=== PATIENT | male | born 1960 | race Caucasian/White ===

== ENCOUNTER 2024-08-06 13:52 | Outpatient (CLI) | payer BC, SELFPAY ==
--- NOTE | ~2024-08-06 | US_ITS ---
EXAMINATION: US arterial duplex LE RT DATE: 08/06/2024 14:36 INDICATION: Iliac artery dissection TECHNIQUE: Multiple grayscale and Doppler ultrasound images of the arteries of the right lower limb w ere obtained. COMPARISON: None FINDINGS: Normal grayscale appearance and normal triphasic waveforms with brisk systolic upstrokes at the visua lized portions of the right common femoral, profunda femoral, superficial femoral, popliteal, posteri or tibial and peroneal arteries. IMPRESSION: 1. Normal arterial duplex ultrasound of the arteries of the right lower limb as detailed above. Reviewed, dictated and finalized at location A.
--- OUTSIDE RECORDS SUMMARY | 2024-08-06 14:17 | XMS_ITS | Clinical Summary ---
Author Organization [facility] Care Team Providers Care Igniter Assembler Name Role Phone Unavailable Primary Care Provider Unavailabl e Social History Tobacco Use Types Packs/Day Years Used Date Smoking Tobacco: Never Assessed Sex and Gender Information Value Date Recorded Sex Assigned at Not on file Legal Sex Male 10:15 AM CDT Gender Identity Not on file Sexual Orientation Not on file Plan of Treatment Health Maintenance Due Date Last Done Comments Hepatitis C Virus (HCV) Screening 1960 TdaP Immunization 1960 Colonoscopy 2005 Colorectal Cancer Screening 2005 Cologuard 2010 Immunochemical Fecal Occult Blood 2010 Pneumococcal Immunization (5 0+ years) (1 of 1 - PCV) 2010 PSA Discussion 2015 Influenza Immunization (#1) 01/19/202409/2019, 02/25/2019 SARS-COV-2 Immunization ( season) 2024 09/05/2020, 08/15/2020 Respiratory Syncytial Virus (RSV) Immunization (Adult) (1 - 1-dose 75+ series) 2035 Zoster Immunization Completed 10/25/2017, 06/25/2017 Hepatitis B Immunization Aged Out No longer eligible based on patient's age to complete this topic Meningococcal Immunization (ACWY) Aged Out No longer eligible b ased on patient's age to complete this topic Pneumococcal Immunization Combined Aged Out No longer eligible b ased on patient's age to complete this topic Rotavirus Immunization Aged Out No lo nger eligible based on patient's age to complete this topic
--- OUTSIDE RECORDS SUMMARY | 2024-08-06 14:17 | XMS_ITS | Referral Summary ---
Author Organization [facility] Address [address] [place] [address] Care Team Providers Care Underground Roof Bolter Name Role Phone Modesto You MD Primary Care Provide r Allergies Active Allergy Reactions Criticality Noted Date Comments Penicillin Penicillins Medications simvastatin (ZOCOR) 10 mg tablet take 1 tablet by oral route every day in the evening 0 0 6 Active nortriptyline (PAMELOR) 10 mg capsule take 1 capsule by oral route every night at bedtime 30 2 6 Active ciprofloxacin (CIPRO) 500 mg tablet Take 1 tablet (500 mg total) by mouth 2 (two) times a day 20 tablet 2 Active ondansetron ODT (ZOFRAN-ODT) 8 mg disintegrating tablet Take 1 tablet (8 mg total) by mouth every 8 (eight) hours as needed for nausea or vomiting 20 tablet 2 Active Immunizations Immunization Administration Dates Next Due Influenza, Quadrivalent, Spl it, Preservative Free, Intramuscular 05/16/2017 Social History Tobacco Use Types Packs/Day Years Used Date Smoking Tobacco: Never Assessed Sex and Gender Information Value Date Recorded Sex Assigned at Not on file Legal Sex Male 4:01 AM STEPDOWN NURSE Gender Identity Not on file Sexual Orientation Not on file Last Filed Vital Signs Vital Sign Reading Time Taken Comments Blood Pressure 108/86 06/05/2021 11:00 AM STEPDOWN NURSE Pulse 82 06/05/2021 11:00 AM STEPDOWN NURSE Temperature 36.4 C (97.5 F) 06/05/2021 8:01 AM STEPDOWN NURSE Respiratory Rate 19 06/05/2021 7:59 AM STEPDOWN NURSE Oxygen Saturation 97% 06/05/2021 11:00 AM STEPDOWN NURSE Inhaled Oxygen Concentration - - Weight 75 kg (165 lb 5.5 oz) 06/05/2021 7:59 AM STEPDOWN NURSE Height 172.7 cm (5' 7.99 ) 06/05/2021 7:59 AM CS T Body Mass Index 25.15 06/05/2021 7:59 AM STEPDOWN NURSE Plan of Treatment Not on file Insurance [employer] [place] [employer] [place] Care Teams Underground Roof Bolter Relationship Specialty Start Date End Date Modesto You MD [address] [place] [address] PCP - General 07/03/16
--- OUTSIDE RECORDS SUMMARY | 2024-08-06 14:17 | XMS_ITS | Clinical Summary ---
Author Organization [facility] Address [address] [place] [address] Care Team Providers Care Bin Piler Name Role Phone Modesto You MD Primary [...] Quadrivalent, Spl it, Preservative Free, Intramuscular 05/16/2017 Surgical History Surgery Date Site/Laterality Comments ABSCESS TUBE EXCHANGE 06/14/2016 N/A ABSCESS TUBE EXCHANGE 06/05/2016 N/A IR CHOLANGIOGRAM THROUGH EXISTING CATHETER 05/07/2016 N/A ABSCESS TUBE EXCHANGE 04/27/2016 N/A GALLBLADDER DRAINAGE 04/23/2016 N/A CT GUIDED DRAINAGE PERITONEA L OR RETROPERITONEAL FLUID COLLECTION 04/10/2016 N/A Social History Tobacco Use Types Packs/Day Years Used Date Smoking Tobacco: Never Assessed Sex and Gender Information Value Date Recorded Sex Assigned at Not on file Legal Sex Male 4:01 AM ANATOMIC PATHOLOGY MANAGER Gender Identity Not on file Sexual Orientation Not on file Obstetrics History Last Filed Vital Signs Vital Sign Reading Time Taken Comments Blood Pressure 108/86 06/05/2021 11:00 AM ANATOMIC PATHOLOGY MANAGER Pulse 82 06/05/2021 11:00 AM ANATOMIC PATHOLOGY MANAGER Temperature 36.4 C (97.5 F) 06/05/2021 8:01 AM ANATOMIC PATHOLOGY MANAGER Respiratory Rate 19 06/05/2021 7:59 AM ANATOMIC PATHOLOGY MANAGER Oxygen Saturation 97% 06/05/2021 11:00 AM ANATOMIC PATHOLOGY MANAGER Inhaled Oxygen Concentration - - Weight 75 kg (165 lb 5.5 oz) 06/05/2021 7:59 AM ANATOMIC PATHOLOGY MANAGER Height 172.7 cm (5' 7.99 ) 06/05/2021 7:59 AM CS T Body Mass Index 25.15 06/05/2021 7:59 AM ANATOMIC PATHOLOGY MANAGER Plan of Treatment Not on file Insurance [employer] [place] [facility] [employer] [facility] Care Teams Bin Piler Relationship Specialty Start Date End Date Modesto You MD [address] [place] [id number] PCP - General 07/03/16
--- OUTSIDE RECORDS SUMMARY | 2024-08-06 14:17 | XMS_ITS | Clinical Summary ---
Author Organization [facility] Address [address] [place] [address] Care Team Providers Care Distribution Spec Name Role Phone Modesto You MD Primary Care Provider [phone] Source Comments [facility],non-owned Affiliates and Associated Physician Practices is amultiple site organization consisting of ambulatory clinics and hospital sitesin [place], [place], [place] and [place]. This disclosure is being madepursuant to the Care Everywhere program and may not contain all information available regarding this patient. Last updated 18.[facility] [employer] Social History Tobacco Use Types Packs/Day Years Used Date Smoking Tobacco: Never Assessed Sex and Gender Information Value Date Recorded Sex Assigned at Not on file Gender Identity Not on file Sexual Orientation Not on file Plan of Treatment Health Maintenance Due Date Last Done Comments COLOGUARD (AGES 45-75) - COL ON CA SCREENING 1960 COLON MONITORING 1960 COLONOSCOPY - COLON CA SCREENING 1960 CT COLONOGRAPHY - COLON CA SCREENING 1960 Colorectal Cancer Screening 1960 FIT - COLON CA SCREENING 1960 FLEX SIG - COLON CA SCREENING 1960 LIPID TESTING 1960 HIV SCREENING 1975 HEPATITIS C SCREENING 04/29/1978 DTAP/TDAP/TD VACCINES (1 - Tdap) 1979 PNEUMOCOCCAL VACCINE 50+ (1 of 1 - PCV) 2010 ZOSTER VACCINE (1 of 2) 2010 COVID-19 VACCINE ( - 2023-2 5 season) 2024 INFLUENZA VACCINE (#1) 2024 DEPRESSION SCREENING 05/20/2024 Respiratory Syncytial Virus (RSV) Vaccine Pt: or over 60 yrs (1 - 1-dose 75+ series) 2035 HEPATITIS B VACCINE Aged Out No longe r eligible based on patient's age to complete this topic HIB VACCINE Aged Out No longer eligi ble based on patient's age to complete this topic HPV VACCINE Aged Out No longer eligi ble based on patient's age to complete this topic MENINGOCOCCAL (Group B) VACC INE SHARED DECISION-MAKING Aged Out No longer eligibl e based on patient's age to complete this topic MENINGOCOCCAL GROUPS A/C/Y/W VACCINE Aged Out No longer eligible b ased on patient's age to complete this topic PNEUMOCOCCAL VACCINE Aged Out No long er eligible based on patient's age to complete this topic Care Teams Distribution Spec Relationship Specialty Start Date End Date Modesto You MD [address] [place] [address] PCP - General Internal Medicine 12/21/16
== END 2024-08-06 13:53 | disposition home or self-care (01) ==
PROVIDERS: PCP Emergency Medicine; Visit Provider Emergency Medicine
DX: I77.72 Dissection of iliac artery (principal)
CPT/HCPCS: 93926

== ENCOUNTER 2025-02-09 07:29 | Outpatient (CLI) | payer BC, SELFPAY ==
--- OUTSIDE RECORDS SUMMARY | 2025-02-09 07:44 | XMS_ITS | Clinical Summary ---
Author Organization [facility] Address [address] [place] [address] Care Team Providers Care Billing Manager Name Role Phone Modesto You MD Primary Care Provider [phone] Source Comments [facility],non-owned Affiliates and Associated Physician Practices is amultiple site organization consisting of ambulatory clinics and hospital sitesin [place], [place], [place] and [place]. This disclosure is being madepursuant to the Care Everywhere program and may not contain all information available regarding this patient. Last updated 18.[facility] [employer] Social History Tobacco Use Types Packs/Day Years Used Date Smoking Tobacco: Never Assessed Sex and Gender Information Value Date Recorded Sex Assigned at Not on file Legal Sex Male 12:39 PM CDT Gender Identity Not on file Sexual [...] 2010 ZOSTER VACCINE (1 of 2) 2010 DEPRESSION SCREENING 05/20/2024 COVID-19 VACCINE ( - 2023-2 5 season) 2025 INFLUENZA VACCINE (#1) 2025 Respiratory Syncytial Virus (RSV) Vaccine Pt: or [...] age to complete this topic Care Teams Billing Manager Relationship Specialty Start Date End Date Modesto You MD [address] [place] [address] PCP - General Internal Medicine 12/21/16
--- OUTSIDE RECORDS SUMMARY | 2025-02-09 07:44 | XMS_ITS | Clinical Summary ---
Author Organization [facility] Address [address] [place] [address] Care Team Providers Care [address] Magistrate Name Role Phone [place] You MD Primary Care Provide r Allergies Active Allergy Reactions Criticality Noted Date Comments Penicillin Other (See comments) Pt had a long time ago as a child and is unsure of reaction Penicillins Medications rosuvastatin (CRESTOR) 10 mg tablet Take 1 tablet (10 mg total) by mouth daily 07/20/2024 Active vitamin D3-vitamin K2 25 mcg (1,000 unit)-90 mcg tablet,disintegr ating Take by mouth Active multivitamin tabletIndication s:Vitamin Deficiency Prevention Take 1 tablet by mouth Simona- fusion Men's 50 plus Active fish oil-dha-epa 1,200-144-216 mg capsule Take by mouth Active Active Problems Problem Noted Date Diagnosed Date Aortic dissection 12/01/2024 Dissection of abdominal aorta 10/01/2024 Assessment & Plan (01/13/2025 9:17 AM CDT): Status post endovascular repair of dissection of the distal aorta bilateral iliac arteries, repair was an endovascular repair with iliac branch device to the left hypogastric artery and coil embolization of the right hypogastric artery. Overall has done extremely well since the procedure CT scan with widely patent stents with no evidence of endoleak. Does have some right buttock claudication which overall is not life-limiting. I encouraged him to continue ambulating to assist with the buttock claudication. We will follow up in 1 year with repeat CTA abdomen pelvis Assessment & Plan (12/17/2024 3:24 PM CDT): Impression: Patient is status post endovascular repair bilateral iliac artery aneurysms and coil embolization of right hypogastric artery. Patient reports occasional buttock claudication on the right side but denies any symptoms of claudication to his lower extremities. Percutaneous sites are healing with Dermabond still intact to the right groin. No concern for pseudoaneurysms or hematoma. Plan: Discussed with the patient buttock claudication will improve over time. Recommend patient to continue to walk/ride his bike. -We will have patient follow-up in 4 weeks for re-evaluation with CTA abdomen and pelvis for further evaluation of stent graft repair. Preop cardiovascular exam 09/21/2024 Dissection of iliac artery 08/28/2024 Assessment & Plan (09/16/2024 11:03 AM CDT): Distal aortic and bilateral common iliac artery dissection with aneurysmal degeneration to 3.5 cm on the right and 2 cm of the left, findings discussed with the patient and his with recommendation for repair. Risks benefits alternatives to endovascular aneurysm repair with possible iliac branch device and/or coil embolization of the hypogastric arteries were discussed. Risks including bleeding, infection, perforation, contrast induced nephropathy, dissection, thrombosis, distal embolization, ischemia to the pelvis, lower extremities, ID, and stroke. We also discussed the possibility of hypogastric now perfusion and or need for coil embolization which can lead to pelvic ischemia specifically buttock claudication. He wished proceed. 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 At that time right iliac was measuring 2.8 cm. CTA abdomen pelvis ordered for further evaluation I did discussed with the patient and his that typically we fix the iliac arteries at 3.5 or the aorta at 5.5 cm or if there was evidence of rapid growth. We will follow up after his CT. Mixed hyperlipidemia 08/28/2024 Assessment & Plan (09/16/2024 11:03 AM CDT): Stable continue Crestor Assessment & Plan (08/28/2024 10:20 AM CDT): Stable continue Crestor Encounters Date Type Department Care Team Description 01/15/2025 Orders Only [facility] Medical [facility] Vascular and Vein Surgery [address] [place] [phone] Diony Mena MD 01/13/2025 8:30 AM CDT Office Visit [facility] Vascular at [address] [place] [phone] Diony Mena MD Dissection of abdominal aorta (HCC) (Primary Dx) 01/13/2025 Orders Only [facility] Vascular at [address] [phone] Diony Mena MD Dissection of abdominal aorta (HCC) (Primary Dx); Aftercare following surgery of the circulatory system 01/01/2025 Orders Only [facility] Vascular and Vein Surgery [address] [place] [phone] Marshall Crandall MD 12/31/2024 8:05 AM CDT - 12/31/2024 11:59 PM CDT Hospital Encounter [facility] [employer] [address] [place] [address] Discharge Disposition: Discharge to home or self care 12/17/2024 Telephone [facility] Vascular and Vein Surgery [address] [place] [phone] Padmini Kelsey MA 12/17/2024 Telephone [facility] Vascular and Vein Surgery [address] [place] [phone] Padmini Kelsey MA 12/16/2024 8:45 AM CDT Office Visit [facility] Vascular at [address] [place] [phone] Torie Seay NP Dissection of abdominal aorta (HCC) (Primary Dx) 12/16/2024 Orders Only [facility] Medical [facility] Vascular at [address] [place] [phone] Diony Mena MD 12/16/2024 Orders Only [facility] Medical Group Vascular at [address] [place] [phone] Diony Mena MD Aftercare following surgery of the circulatory system (Primary Dx) 12/01/2024 7:46 AM CDT Anesthesia Event [facility] [place] [address] [place] [phone] Peri Stephens MD Weathers, Christina 12/01/2024 7:30 AM CDT - 12/01/2024 10:10 AM CDT Surgery [facility] OR [address] [place] [phone] Diony Mena MD PERCUTANEOUS ENDOVASCULAR ABDOMNIAL AORTIC ANEURYSM REPAIR WITH LEFT ILIAC ARTERY BRANCH DEVICE, RIGHT HYPOGASTRIC ARTERY COIL AND EMBOLIZATION, BILATERAL EXTERNAL ILIAC ARTERY EXTENSION, AND LEFT INTERAL ILIAC ARTERY EXTENSION 12/01/2024 5:17 AM CDT - 12/02/2024 2:15 PM CDT Hospital Encounter [facility] [address] [place] [phone] Diony Mena MD Dissection of iliac artery [I77.72] (Primary Dx); Dissection of abdominal aorta (HCC) Discharge Disposition: Discharge to home or self care 11/09/2024 8:00 AM CDT Pre-Admission Testing [facility] PreAdmission Testing [address] [place] [address] Dissection of abdominal aorta (HCC) 11/09/2024 Telephone [facility] Medical [facility] Vascular and Vein Surgery [address] [facility] [address] [place] [address] Joyce Wooten, RN from Last 3 Months Immunizations Immunization Administration Dates Next Due Influenza, Quadrivalent, Spl it, Preservative Free, Intramuscular 05/16/2017 Surgical History Surgery Date Site/Laterality Comments ABSCESS TUBE EXCHANGE 06/14/2016 N/A ABSCESS TUBE EXCHANGE 06/05/2016 N/A IR CHOLANGIOGRAM THROUGH EXISTING CATHETER 05/07/2016 N/A ABSCESS TUBE EXCHANGE 04/27/2016 N/A GALLBLADDER DRAINAGE 04/23/2016 N/A CT GUIDED DRAINAGE PERITONEA L OR RETROPERITONEAL FLUID COLLECTION 04/10/2016 N/A HERNIA REPAIR inguinal- complications in surgery- 2 nicks in colon- several hernia revision surgeries required due to complications CHOLECYSTECTOMY April after hernia surgery- had to heal after hernia complication surgery- gallbladder shut down Medical History Medical History Date Comments Dissection of iliac artery Hyperlipidemia Postoperative nausea and vomiting AAA (abdominal aortic aneurysm) surgery scheduled for 11/16/24 Wears glasses Family History Relation Name Status Comments Father Mother Social History Tobacco Use Types Packs/Day Years Used Date Smoking Tobacco: Never Tobacco Cessation:Counseling Given: Not Answered [facility] Utilities Answer Date Recorded In the past 12 months has [employer] electric, gas, oil, or water company threatened to shut off services in your home? Patient unable to answer 12/02/2024 Social Connection and Isolation Panel Answer Date Recorded In a typical week, how many times do you talk on the phone with family, friends, or neighbors? Patient unable to answer 12/02/2024 How often do you get togethe r with friends or relatives? Patient unable to answer 12/02/2024 How often do you attend chur ch or yarsanism services? Patient unable to answer 12/02/2024 Do you belong to any clubs o r organizations such as baptism groups, unions, fraternal or athletic groups, or school groups? Patient unable to answer 12/02/2024 How often do you attend meet ings of the clubs or organizations you belong to? Patient unable to answer 12/02/2024 Are you , , di vorced, , never , or living with a partner? Patient unable to answer 12/02/2024 AUDIT-C Answer Date Recorded Q1: How often do you have a drink containing alcohol? Never 11/09/2024 Q2: How many drinks containi ng alcohol do you have on a typical day when you are drinking? Patient does not drink Q3: How often do you have si x or more drinks on one occasion? Never 11/09/2024 Overall Financial Resource Strain (CARDIA) Answe r Date Recorded How hard is it for you to pa y for the very basics like food, housing, medical care, and heating? Patient unable to answer 12/02/2024 Hunger Vital Sign Answer Date Recorded Within the past 12 months, y ou worried that your food would run out before you got the money to buy more. Patient unable to answer 12/02/2024 Within the past 12 months, t he food you bought just didn't last and you didn't have money to get more. Patient unable to answer 12/02/2024 PRAPARE - Transportation Answer Date Re corded In the past 12 months, has l ack of transportation kept you from medical appointments or from getting medications? Patient unable to answer 12/02/2024 In the past 12 months, has l ack of transportation kept you from meetings, work, or from getting things needed for daily living? Patient unable to answer 12/02/2024 Housing Stability Vital Sign Answer José Miguel e Recorded In the last 12 months, was t here a time when you were not able to pay the mortgage or rent on time? Patient unable to answer 12/02/2024 In the past 12 months, how m any times have you moved where you were living? 0 12/02/2024 At any time in the past 12 m [facility], were you homeless or living in a half-way (including now)? Patient unable to answer 12/02/2024 Personal Safety Answer Date Recorded Have you ever been in or are you currently in a harmful physical or emotional relationship or is someone making you feel afraid or unsafe? 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 Gender Identity Not on file Sexual Orientation Not on file Obstetrics History Last Filed Vital Signs Vital Sign Reading Time Taken Comments Blood Pressure 116/83 01/13/2025 8:28 AM CDT Pulse 65 01/13/2025 8:28 AM CDT Temperature 36.9 C (98.4 F) 12/02/2024 7:47 AM CDT Respiratory Rate 18 12/02/2024 7:47 AM CDT Oxygen Saturation 97% 01/13/2025 8:28 AM CDT Inhaled Oxygen Concentration - - Weight 79.4 kg (175 lb) 01/13/2025 8:28 AM CDT Height 172.7 cm (5' 8) 01/13/2025 8:28 AM CDT Body Mass Index 26.61 01/13/2025 8:28 AM CDT Plan of Treatment Health Maintenance Due Date Last Done Comments Depression Screening 1960 Prostate Cancer Screening-PSA 1960 DTaP/Tdap/Td Vaccine (1 - Tdap) 1971 Hepatitis B Screening 1978 Regular Well Visit/Exam 18-64 1978 Covid-19 Vaccine (4 - season) 2025 04/12/2021, 09/05/2020, 08/15/2020 Influenza Vaccine (#1) 2025 0, 02/25/2019, 05/16/2017 Colon Cancer Screening-Colonoscopy 08/22/2025 08/23/2015 Colon Cancer Screening-CT Colonography Discontinued 08/23/2015 Colon Cancer Screening-DNA Stool Discontinued 08/23/2015 Colon Cancer Screening-FIT Discontinued 08/23/2015 Colon Cancer Screening-Sigmoidoscopy Discontinued 08/23/2015 Hepatitis C Screening Completed 07/03/2016 Zoster Vaccine Completed 10/25/2017, 06/26/2017, 06/25/2017 Pneumococcal vaccine <65 Aged Out No longer eligible based on patient's age to complete this topic Medical Devices Implanted Type Area Mold Finisher Device Identifier Shelf Expiration Date Model / Serial / Lot Screw Screw Right: Shoulder Description:Right shoulder r otator cuff [employer] Plug Occluder Cvasc Embl Self Expanding Amplatzer [id number] Nitinol 9-Avp2-016 - [id number] Implanted:Qty: 1 on 12/01/2024 by Diony Mena MD at [facility] Right: Internal Iliac (Hypogastric ) Artery [employer] [id number] 07/18/2027 9-AVP2-0 / / [id number] [employer] System Closure Repair Femoral Artery Suture Mediated Perclose Prostyle 33173-57 - [id number] Implanted:Qty: 2 on 12/01/2024 by Diony Mena MD at [facility] Right: Groin [employer] [id number] 10/17/2026 127 73-03 / / [id number] [employer] V[employer] System Closure Repair Femoral Artery Suture Mediated Perclose Prostyle 46828-77 - [id number] Implanted:Qty: 2 on 12/01/2024 by Diony Mena MD at [facility] Left: Groin [employer] [id number] 10/17/2026 1277 3-03 / / [id number] [employer] Excluder 14.5mm 10cm Branch Component Iliac Graft [id number] - [id number] - [id number] Implanted:Qty: 1 on 12/01/2024 by Diony Mena MD at [facility] Left: Common Iliac Artery [employer] [id number] 09/28/2027 [id number] / [id number] / [employer] Stent Graft Branch Iliac Internal Extension [id number] Excluder [id number] - [id number] - [id number] Implanted:Qty: 1 on 12/01/2024 by Diony Mena MD at [facility] Left: Internal Iliac (Hypogastric ) Artery [employer] [id number] 09/22/2027 [id number] / [id number] / [employer] Wall[employer] Excluder 14.5mm 10cm Branch Component Iliac Graft [id number] - [id number] - [id number] Implanted:Qty: 1 on 12/01/2024 by Diony Mena MD at [facility] N/A: Abdominal Aorta [employer] [id number] 09/28/2027 [id number] / [id number] / [employer] Excluder 14.5mm 12-13.5mm 14cm Contralateral Leg Graft [id number] - [id number] - [id number] Implanted:Qty: 1 on 12/01/2024 by Diony Mena MD at [facility] Right: External Iliac Artery [employer] [id number] 08/30/2027 [id number] / [id number] / [employer] Excluder 18mm 14.5-16.5mm 13.5cm Stent Abrasion Resistant [id number] - [id number] - [id number] Implanted:Qty: 1 on 12/01/2024 by Diony Mena MD at [facility] Right: Common Iliac Artery [employer] [id number] 12/10/2026 [id number] / [id number] / [employer] Wall[employer]-Alan Excluder 27mm 21.5-25mm 10cm Sinusoidal Stent Seal Cuff [id number] - [id number] - [id number] Implanted:Qty: 1 on 12/01/2024 by Diony Mena MD at [facility] Left: Abdominal Aorta [employer] [id number] 11/23/2026 [id number] / [id number] / Procedures Procedure Name Priority Date/Time Associated Diagnosis Comments CTA ABDOMEN Schedule Routine, Read Routine (OP Routine) 12/31/2024 1:[address] BODY OUTSIDE REFERENCE Routine 12/31/2024 8:05 AM CDT EGFR Routine 12/02/2024 4:28 AM CDT BASIC METABOLIC PANEL Routine 12/02/2024 4:28 AM CDT CBC WITHOUT DIFFERENTIAL Routine 12/02/2024 4:28 AM CDT PREPARE RBC STAT 12/01/2024 12:14 PM CDT VASCULAR SURGERY PROCEDURE Routine 12/01/2024 10:45 AM CDT Dissection of abdominal aorta (HCC) FL FLUOROSCOPY < 1 HOUR IP Routine 12/01/2024 10:24 AM CDT POCT ACTIVATED CLOTTING TIME, LOW RANGE Routine 12/01/2024 9:06 AM CDT POCT ACTIVATED CLOTTING TIME, LOW RANGE Routine 12/01/2024 8:55 AM CDT WI AN PROCEDURE PLACEHOLDER Routine 12/01/2024 8:26 AM CDT WI AN ELECTIVE ENDOTRACHEAL AIRWAY Routine 12/01/2024 8:26 AM CDT WI AN PROCEDURE PLACEHOLDER Routine 12/01/2024 8:24 AM CDT WI AN PROCEDURE PLACEHOLDER Routine 12/01/2024 8:24 AM CDT WI AN PROCEDURE PLACEHOLDER Routine 12/01/2024 8:22 AM CDT ANTIBODY SCREEN Routine 12/01/2024 6:10 AM CDT B ABO / RH CONFIRMATION TESTING Routine 12/01/2024 6:10 AM CDT EGFR Routine 11/09/2024 7:54 AM CDT Dissection of abdominal aorta (HCC) DIFFERENTIAL AUTO Routine 11/09/2024 7:5 4 AM CDT Dissection of abdominal aorta (HCC) ANTIBODY SCREEN Routine 11/09/2024 7:54 AM CDT Dissection of abdominal aorta (HCC) ABO/RH Routine 11/09/2024 7:54 AM CDT Dissection of abdominal aorta (HCC) COMPREHENSIVE METABOLIC PANEL Routine 11/09/2024 7:54 AM CDT Dissection of abdominal aorta (HCC) CBC WITH AUTO DIFFERENTIAL Routine 11/09/2024 7:54 AM CDT Dissection of abdominal aorta (HCC) TYPE AND SCREEN 14 DAY Routine 11/09/2024 7:54 AM CDT Dissection of abdominal aorta (HCC) PROTIME-INR Routine 11/09/2024 7:54 AM CDT Dissection of abdominal aorta (HCC) APTT Routine 11/09/2024 7:54 AM CDT Dissection of abdominal aorta (HCC) SERUM HEPATITIS C AB Routine 07/03/2016 12:50 PM PLUMBING ENGINEER COLONOSCOPY REPORT 08/23/2015 from Last 3 Months or Most Recently Relevant to Health Maintenance Results * CTA Abdomen (12/31/2024 1:34 PM CDT) Anatomical Region Laterality Modality Abdomen N/A Computed Tomogra phy Historical Provider MD IMG CT PROCEDURES Final R esult * CT Body Outside Reference (12/31/2024 8:05 AM CDT) Narrative [email or web address] - 01/12/2025 11:00 AM CDT This order has been auto-finalized and does not contain a result. us Provider Transcribed Order IMG CT PROCEDURES Fin al Result [email or web address] * eGFR (12/02/2024 4:28 AM CDT) eGFR >90 >=60 mL/min/1. 73 m2 Comment: Interpretive Data Reference Interval Normal >/= 90 mL/min/1.73m2 Mildly decreased* 60 - 89 mL/min/1.73m2 Mildly to moderately decreased 45 - 59 mL/min/1.73m2 Moderately to severely decreased 30 - 44 mL/min/1.73m2 Severely decreased 15 - 29 mL/min/1.73m2 Kidney Failure < 15 mL/min/1.73m2 *Relative to young adult level Estimated glomerular filtration rate is determined by the 2020 CKD-EPI equation recommended by the National Kidney Foundation (A Unifying Approach to GFR Estimation: Recommendations of the NKF-ASK Task Force on Reassessing the Inclusion of Race in Diagnosing Kidney Disease, JASN 2020). The CKD-EPI equation should not be used for patients with unstable renal function and has not been validated in children and those over 70. Current interpretive data was last reviewed 2021. Blood 12/02/2024 4:28 AM CDT 12/02/2024 4:55 AM CDT Diony Mena MD LAB BLOOD ORDERABLES Final Resul t PATRICIA [address] [facility] Department [place] [address] * (ABNORMAL) CBC without differential (12/02/2024 4:28 AM CDT) [facility] WBC 14.80(H) 3.80 - 9.90 K/cumm Hgb 14.4 13.0 - 17.5 g/dL [facility] Hct 42.3 38.9 - 50.3 % [facility] Plt 152 150 - 400 K/cumm [facility] MPV 9.5 9.1 - 12.3 fL [facility] RBC 4.58 4.30 - 5.80 M/cumm [facility] MCV 92.4 81.3 - 96.4 fL [facility] MCH 31.4 27.1 - 33.3 pg [facility] MCHC 34.0 32.3 - 35.7 g/dL [facility] RDW CV 12.7 11.1 - 14.9 % [facility] RDW SD 42.7 35.7 - 48.1 fL [facility] NRBC abs 0.00 0.00 - 0.01 K/cumm [facility] Blood 12/02/2024 4:28 AM CDT 12/02/2024 4:55 AM CDT us Diony Mena MD LAB BLOOD ORDERABLES Final Resul t [facility] [address] [facility] Department [place] [address] * (ABNORMAL) Basic metabolic panel (12/02/2024 4:28 AM CDT) [facility] Sodium 138 135 - 145 mmol/L Potassium, pl 3.9 3.3 - 4.9 mmol/L [facility] Chloride 108 97 - 110 mmol/L [facility] CO2 22 22 - 32 mmol/L [facility] Anion gap 8 2 - 15 mmol/L [facility] BUN 13 6 - 25 mg/dL [facility] Creatinine 0.76(L) 0.80 - 1.30 mg/dL [facility] Glucose 127 70 - 199 mg/dL [facility] Comment: Interpretive Data Fasting glucose >/= 126 mg/dl is diagnostic for diabetes. Fasting is defined as no caloric intake for at least 8 hours. Fasting glucose between 100 mg/dl to 125 mg/dl is diagnostic of prediabetes. In a patient with classic symptoms of hyperglycemia or hyperglycemic crisis, a random glucose >/= 200 mg/dl is diagnostic for diabetes. In the absence of unequivocal hyperglycemia, results should be confirmed by repeat testing. The classification and Diagnosis of Diabetes Diabetes Care 2021; 46: S19-S40. Current interpretive data was last revised 2022. Calcium 8.3(L) 8.5 - 10.3 mg/dL PATRICIA Blood 12/02/2024 4:28 AM CDT 12/02/2024 4:55 AM CDT us Diony Mena MD LAB BLOOD ORDERABLES Final Resul t Performing Organization Address [facility] Co de Phone Number [address] [place] [address] * Prepare RBC: 2 Units (12/01/2024 12:14 PM CDT) Units requested 2 Units requested Ready [facility] Blood 12/01/2024 12:1 4 PM CDT 12/01/2024 12:14 PM CDT Narrative [facility] - 12/01/2024 12:15 PM CDT Are special requirements needed? (All products are leukoreduced and CMV- safe)->No Diony Mena MD BLOOD BANK PRODUCT ORDERABLES Fi nal Result Performing Organization Address [facility] Co de Phone Number [address] [place] [address] * REPAIR ANEURYSM - ABDOMINAL AORTIC - ENDOLUMINAL (12/01/2024 10:45 AM CDT) Anatomical Region Laterality Modality X-Ray Angiograph y us Doiny Mena MD CV CARDIAC CATH PROCEDURES Final Result * FL Fluoroscopy < 1 Hour (12/01/2024 10:24 AM CDT) Narrative [email or web address] - 12/01/2024 10:25 AM CDT The images from this study are not interpreted by Radiology. Please refer to the physician's procedure / OR operative note. Diony Mena MD IMG FLUOROSCOPY PROCEDURES Final Result Performing Organization Address [facility] Co de Phone Number [email or web address] * (ABNORMAL) POCT Activated clotting time, low range (12/01/2024 9:06 AM CDT) ACT 352(H) 123 - 168 sec POC Performer [id number] [facility] POC Device Number [id number] [facility] Blood 12/01/2024 9:06 AM CDT 12/01/2024 9:06 AM CDT Diony Mena MD LAB POCT ORDERABLES - DEVICE Fin al Result Performing Organization Address [facility] de Phone Number [address] [place] [address] * (ABNORMAL) POCT Activated clotting time, low range (12/01/2024 8:55 AM CDT) ACT 173(H) 123 - 168 sec POC Performer [id number] [facility] POC Device Number [id number] [facility] Blood 12/01/2024 8:55 AM CDT 12/01/2024 8:55 AM CDT Diony Mena MD LAB POCT ORDERABLES - DEVICE Fin al Result Performing Organization Address [facility] de Phone Number [address] [place] [address] * WI AN ELECTIVE ENDOTRACHEAL AIRWAY, WI AN PROCEDURE PLACEHOLDER (12/01/2024 8:26 AM CDT) Narrative Gisella Lucero CRNA - 12/01/2024 8:26 AM CDT Gisella Lucero CRNA 12/01/2024 8:26 AM Airway Patient location: OR Urgency: elective Date/time: 12/01/2024 7:56 AM Indications for airway management: anesthesia Difficult airway: no Staff: Supervising provider: Peri Stephens MD Placed by: STEPHANIE: Gisella Lucero CRNA Emergent airway documentation: Risks and benefits discussed: yes Consent obtained: yes Consent given by: patient Airway prep: Preoxygenated: yes Patient position: sniffing MILS maintained throughout: yes Mask difficulty assessment: 1 - vent by mask Spontaneous ventilation during airway: absent Sedation level during airway: GA Final airway details: Final airway type: endotracheal airway Tube type: ETT ETT size: 8.0 mm Cuffed: yes Technique used for successful ETT placement: direct laryngoscopy Insertion site: oral Blade type: Harding Blade size: 2 Cormack-Lehane (direct): grade I - full view of glottis Cuff inflated with: air ETT to lips: 23 cm Placement verified by: auscultation and CO2 detection Airway secured with: other Number of attempts: 1no Additional comments: Hardin tape us Peri Stephens MD ANESTHESIA ORDERABLES Final Re sult * [place] AN PROCEDURE PLACEHOLDER (12/01/2024 8:24 AM CDT) Gisella Hernández CRNA - 12/01/2024 8:24 AM CDT Gisella Lucero CRNA 12/01/2024 8:25 AM Peripheral IV Catheter Patient location: OR End time: 12/01/2024 7:58 AM Staff: Placed by: COMMUNICATION EQUIPMENT MECHANIC: Gisella Lucero CRNA Preprocedure prep: Prep solution: alcohol PPE: gloves and provider hat/mask PIV line: Laterality: right Site: wrist Catheter size: 16 g Technique: direct visualization Procedure details: good blood return and occlusive dressing applied Number of attempts: 1 Assessment: Events: patient tolerated procedure well with no complications Peri Stephens MD ANESTHESIA ORDERABLES Final Re sult * WI AN PROCEDURE PLACEHOLDER (12/01/2024 8:24 AM CDT) Gisella Hernández CRNA - 12/01/2024 8:24 AM CDT Gisella Lucero CRNA 12/01/2024 9:06 AM Peripheral IV Catheter Patient location: OR End time: 12/01/2024 7:56 AM Staff: Placed by: STEPHANIE: Gisella Lucero CRNA Preprocedure prep: Prep solution: alcohol PPE: gloves and provider hat/mask PIV line: Laterality: right Site: forearm Catheter size: 16 g Technique: direct visualization Procedure details: good blood return and occlusive dressing applied Number of attempts: 2 Assessment: Events: patient tolerated procedure well with no complications Peri Stephens MD ANESTHESIA ORDERABLES Edited R esult - Final * WI AN PROCEDURE PLACEHOLDER (12/01/2024 8:22 AM CDT) Narrative Gisella Lucero CRNA - 12/01/2024 8:22 AM CDT Gisella Lucero CRNA 12/01/2024 8:24 AM Arterial Line Patient location: OR End time: 12/01/2024 8:04 AM Indication: continuous blood pressure monitoring Staff: Supervising provider: Peri Stephens MD Placed by: COMMUNICATION EQUIPMENT MECHANIC: Gisella Lucero CRNA Procedure prep: Prep solution: alcohol Prep: provider hat/mask Arterial line: Catheter size: 20 gauge Arterial line catheter length: 1 and 1/2 inch. Catheter type: wire-guided catheter Seldinger technique: yes Laterality: right Site: radial artery Line secured: Tegaderm and tape Results: good waveform and good blood return Number of attempts: 2 Other sites attempted: Right radial Assessment: Events: patient tolerated procedure well with no complications Additional comments: Attempt x1 per CChristina Stevenson, GEOFF unsuccessful Peri Stephens MD ANESTHESIA ORDERABLES Final Re sult * ABO / Rh Confirmation Testing (12/01/2024 6:10 AM CDT) ABO/Rh Confirmation O Positive MHB Blood 12/01/2024 6:10 AM CDT 12/01/2024 6:23 AM CDT Diony Mena MD LAB BLOOD ORDERABLES Final Resul t [facility] [address] [facility] [place] [address] MHB * Antibody screen (12/01/2024 6:10 AM CDT) Shanna, indirect, Gel Interpretation Negative ABSC Blood 12/01/2024 6:10 AM CDT 12/01/2024 6:23 AM CDT Diony Mena MD LAB BLOOD BANK TEST ORDERABLES F inal Result Performing Organization Address [facility] Co de Phone Number PATRICIA [address] [place] [address] * eGFR (11/09/2024 7:54 AM CDT) eGFR >90 >=60 mL/min/1. 73 m2 Comment: Interpretive Data Reference Interval Normal >/= 90 mL/min/1.73m2 Mildly decreased* 60 - 89 mL/min/1.73m2 Mildly to moderately decreased 45 - 59 mL/min/1.73m2 Moderately to severely decreased 30 - 44 mL/min/1.73m2 Severely decreased 15 - 29 mL/min/1.73m2 Kidney Failure < 15 mL/min/1.73m2 *Relative to young adult level Estimated glomerular filtration rate is determined by the 2020 CKD-EPI equation recommended by the National Kidney Foundation (A Unifying Approach to GFR Estimation: Recommendations of the NKF-ASK Task Force on Reassessing the Inclusion of Race in Diagnosing Kidney Disease, JASN 2020). The CKD-EPI equation should not be used for patients with unstable renal function and has not been validated in children and those over 70. Current interpretive data was last reviewed 2021. Blood 11/09/2024 7:54 AM CDT 11/09/2024 7:58 AM CDT Diony Mena MD LAB BLOOD ORDERABLES Final Resul t Performing Organization Address City/[facility]/ZIP Co de Phone Number PATRICIA [address] [place] [address] * Differential, auto (11/09/2024 7:54 AM CDT) Neutrophil abs 2.49 1.50 - 6.50 K/cumm Imm gran abs 0.01 0.00 - 0.10 K/cumm [facility] Lymphocyte abs 1.56 0.80 - 3.30 K/cumm [facility] Monocyte abs 0.61 0.20 - 0.80 K/cumm [facility] Eosinophil abs 0.16 0.00 - 0.50 K/cumm [facility] Basophil abs 0.03 0.00 - 0.10 K/cumm [facility] Neutrophil pct 51.2 % [facility] Comment: Interpretive Data Percent cell count reference ranges are not reported, since discordance with absolute values may lead to misinterpretation of CBC data. Current Interpretive Data was last revised on 2017. Imm gran pct 0.2 % [facility] Comment: Interpretive Data Percent cell count reference ranges are not reported, since discordance with absolute values may lead to misinterpretation of CBC data. Current Interpretive Data was last revised on 2017. Lymphocyte pct 32.1 % [facility] Comment: Interpretive Data Percent cell count reference ranges are not reported, since discordance with absolute values may lead to misinterpretation of CBC data. Current Interpretive Data was last revised on 2017. Monocyte pct 12.6 % [facility] Comment: Interpretive Data Percent cell count reference ranges are not reported, since discordance with absolute values may lead to misinterpretation of CBC data. Current Interpretive Data was last revised on 2017. Eosinophil pct 3.3 % [facility] Comment: Interpretive Data Percent cell count reference ranges are not reported, since discordance with absolute values may lead to misinterpretation of CBC data. Current Interpretive Data was last revised on 2017. Basophil pct 0.6 % [facility] Comment: Interpretive Data Percent cell count reference ranges are not reported, since discordance with absolute values may lead to misinterpretation of CBC data. Current Interpretive Data was last revised on 2017. Blood 11/09/2024 7:54 AM CDT 11/09/2024 7:58 AM CDT Diony Mena MD LAB BLOOD ORDERABLES Final Resul t [address] [place] [address] * (ABNORMAL) CBC with auto differential (11/09/2024 7:54 AM CDT) Pathologist [facility] WBC 4.86 3.80 - 9.90 K/cumm Hgb 15.9 13.0 - 17.5 g/dL [facility] Hct 47.8 38.9 - 50.3 % [facility] Plt 162 150 - 400 K/cumm [facility] MPV 8.8(L) 9.1 - 12.3 fL [facility] RBC 5.12 4.30 - 5.80 M/cumm [facility] MCV 93.4 81.3 - 96.4 fL [facility] MCH 31.1 27.1 - 33.3 pg [facility] MCHC 33.3 32.3 - 35.7 g/dL [facility] RDW CV 12.9 11.1 - 14.9 % [facility] RDW SD 44.3 35.7 - 48.1 fL [facility] NRBC abs 0.00 0.00 - 0.01 K/cumm [facility] Blood 11/09/2024 7:54 AM CDT 11/09/2024 7:58 AM CDT us Diony Mena MD LAB BLOOD ORDERABLES Final Resul t Performing Organization Address [facility] Co de Phone Number [address] [place] [address] * ABO/Rh (11/09/2024 7:54 AM CDT) [facility] ABO/Rh O Positive Blood 11/09/2024 7:54 AM CDT 11/09/2024 7:58 AM CDT Narrative [facility] - 11/09/2024 8:46 AM CDT Is this test being ordered in advance for a procedure?->Yes Expected date of procedure:->10/19/24 Has the patient been transfused in the past 3 months?->No us Diony Mena MD LAB BLOOD BANK TEST ORDERABLES F inal Result Performing Organization Address [facility] Co de Phone Number PATRICIA [address] [address] * aPTT (11/09/2024 7:54 AM CDT) aPTT 30 22 - 37 sec Comment: Interpretive data aPTT test has not been evaluated for monitoring heparin therapy. The anti-Xa is the preferred test. Current interpretive data was last revised on 2019. Blood 11/09/2024 7:54 AM CDT 11/09/2024 7:58 AM CDT Diony Mena MD LAB BLOOD ORDERABLES Final Resul t Performing Organization Address [facility] de Phone Number [id number] [place] [address] * (ABNORMAL) Protime-INR (11/09/2024 7:54 AM CDT) PT 14.7(H) 12.0 - 14.6 sec Comment:Ref Range High INR 1.1 0.9 - 1.2 PATRICIA Comment: Ref Range High Interpretive data Oral anticoagulant therapeutic ranges: Venous thromboembolism prophylaxis or treatment: 2.0-3.0 CARDIOLOGY Standard range: 2.0-3.0 High-intensity range: 2.5-3.5 Refer to indication-specific guidelines for appropriate target ranges for prosthetic heart valve replacement. Current interpretive data was last revised on 2019. Blood 11/09/2024 7:54 AM CDT 11/09/2024 7:58 AM CDT Diony Mena MD LAB BLOOD ORDERABLES Final Resul t Performing Organization Address [facility] Co de Phone Number [id number] [place] [address] * Antibody screen (11/09/2024 7:54 AM CDT) Shanna, indirect, Gel Interpretation Negative ABSC Blood 11/09/2024 7:54 AM CDT 11/09/2024 7:58 AM CDT Narrative [facility] - 11/09/2024 8:46 AM CDT Is this test being ordered in advance for a procedure?->Yes Expected date of procedure:->10/19/24 Has the patient been transfused in the past 3 months?->No Diony Mena MD LAB BLOOD BANK TEST ORDERABLES F inal Result [facility] [address] [facility] Department [place] [address] * (ABNORMAL) Comprehensive metabolic panel (11/09/2024 7:54 AM CDT) [facility] Sodium 139 135 - 145 mmol/L Potassium, pl 4.3 3.3 - 4.9 mmol/L [facility] Chloride 106 97 - 110 mmol/L [facility] CO2 21(L) 22 - 32 mmol/L [facility] Anion gap 12 2 - 15 mmol/L [facility] BUN 13 6 - 25 mg/dL [facility] Creatinine 0.76(L) 0.80 - 1.30 mg/dL [facility] Glucose 112 70 - 199 mg/dL [facility] Comment: Interpretive Data Fasting glucose >/= 126 mg/dl is diagnostic for diabetes. Fasting is defined as no caloric intake for at least 8 hours. Fasting glucose between 100 mg/dl to 125 mg/dl is diagnostic of prediabetes. In a patient with classic symptoms of hyperglycemia or hyperglycemic crisis, a random glucose >/= 200 mg/dl is diagnostic for diabetes. In the absence of unequivocal hyperglycemia, results should be confirmed by repeat testing. The classification and Diagnosis of Diabetes Diabetes Care 202; 46: S19-S40. Current interpretive data was last revised 2022. Calcium 9.2 8.5 - 10.3 mg/dL [facility] Bilirubin, total 1.0 0.1 - 1.2 mg/dL [facility] Protein, pl 6.8 6.5 - 8.5 g/dL [facility] Albumin 4.2 3.5 - 5.0 g/dL [facility] Alk phos 64 40 - 130 Units/L [facility] ALT 16 7 - 55 Units/L [facility] AST 18 10 - 50 Units/L [facility] Blood 11/09/2024 7:54 AM CDT 11/09/2024 7:58 AM CDT Diony Mena MD LAB BLOOD ORDERABLES Final Resul t Performing Organization Address [facility] Co de Phone Number PATRICIA [address] [facility] [place] [address] * Serum Hepatitis C ab (07/03/2016 12:50 PM PLUMBING ENGINEER) HCV ab Non-Reacti ve Non-Reacti ve CDR HISTORICAL RESULTS Serum 07/03/2016 12:5 0 PM PLUMBING ENGINEER Historical Provider LAB BLOOD ORDERABLES Katia l Result Performing Organization Address [facility] Co de Phone Number CDR HISTORICAL RESULTS * COLONOSCOPY REPORT (08/23/2015) Anatomical Region Laterality Modality Other Narrative 08/23/2015 Ordered by an unspecified provider. Result [facility] Historical Provider GI PROCEDURE ORDERABLES F inal Result from Last 3 Months or Most Recently Relevant to Health Maintenance Insurance [facility] [employer] [place] [place] [employer] [place] For more information, please contact: [phone] * Full Code (Latest Code Status on File) Date Activated Date Inactivated Comments 12/01/2024 1:51 PM 12/02/2024 6:[address] Relationship Specialty Start Date End Date Modesto You MD [address] [place] [address] PCP - General 07/03/16
--- OUTSIDE RECORDS SUMMARY | 2025-02-09 07:44 | XMS_ITS | Clinical Summary ---
Author Organization [facility] Address [address] [facility] [place] [address] Care Team Providers Care Thermoforming Machine Operator Name Role Phone Unavailable Primary Care Provider Unavailabl e Encounters Date Type Department Care Team Description 02/03/2025 External Device Data [facility] ABSTRACTION Provider, Abstract 02/02/2025 External Device Data [facility] ABSTRACTION Provider, Abstract from Last 3 Months Social History Tobacco Use Types Packs/Day Years Used Date Smoking Tobacco: Never Assessed Sex and Gender Information Value Date Recorded Sex Assigned at Not on file 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
--- OUTSIDE RECORDS SUMMARY | 2025-02-09 07:44 | XMS_ITS | Clinical Summary ---
Author Organization [facility] Care Team Providers Care Sales And Service Advisor Name Role Phone Unavailable Primary Care Provider [...] Virus (HCV) Screening 1960 TdaP Immunization 1960 Cologuard 2005 Colonoscopy 2005 Colorectal Cancer Screening 2005 Immunochemical Fecal Occult Blood 2005 Pneumococcal Immunization (5 0+ years) (1 of 1 - PCV) 2010 SARS-COV-2 Immunization ( season) 2024 09/05/2020, 08/15/2020 Influenza Immunization (#1) 01/18/202509/2019, 02/25/2019 Respiratory Syncytial Virus (RSV) Immunization (Adult) (1 - 1-dose 75+ series) 2035 Zoster Immunization Completed 10/25/2017, 06/25/2017 Hepatitis B Immunization Aged Out No longer eligible based on patient's age to complete this topic Human Papillomavirus (HPV) Immunization Aged Out No longer eligible b ased on patient's age to complete this topic Meningococcal Immunization (ACWY) Aged Out No longer eligible b ased on patient's age to complete this topic Rotavirus Immunization Aged Out No lo nger eligible based on patient's age to complete this topic
--- NOTE | 2025-02-09 07:45 | ECHO_ITS ---
Patient Info Name: Ananda Baltazar Age: 64 years : 1960 Gender: Male Ht: 68 in Wt: 175 lbs BSA: 1.97 m2 HR: 68 bpm BP: 117 / 83 mmHg Heart Rhythm: Sinus Rhythm Technical Quality: Fair Exam Date: 02/09/2025 7:58 AM Patient Status: O Admit Date: 02/09/2025 Exam Type: CA echo doppler color flow Complete two-dimensional, color flow and Doppler transthoracic echocardiogram is performed. Strain analysis performed. Veneer Joiner: Carly Perez Attending Provider: Modesto You MD Summary 1. Complete two-dimensional, color flow and Doppler transthoracic echocardiogram is performed. 2. The aortic root is dilated at the level of the sinus of Valsalva measuring 4.2 cm in diameter. 3. There is normal biventricular size and systolic function. 4. There were no significant valvular abnormalities. Left Ventricle The left ventricle is normal in size and systolic function. The left ventricular ejection fraction is visually estimated to be 60-65%. Right Ventricle The right ventricle is normal in size and systolic function. Left Atria The left atrium is normal size. Right Atria The right atrium is normal size. Atrial Septum The atrial septum is visually intact. Aortic Valve The aortic valve is trileaflet and opens well. There is trace aortic regurgitation. Pulmonic Valve The pulmonic valve is not well visualized. There is no pulmonic valve regurgitation. Mitral Valve The mitral valve is normal. There is no mitral regurgitation. Tricuspid Valve The tricuspid valve is normal. There is trace tricuspid regurgitation. Pericardium/Pleural Pericardium is normal in appearance with no evidence for significant pericardial effusion. Inferior Vena Cava Normal inferior vena cava with >50% collapse upon inspiration consistent with normal right atrial pressure, 3 mmHg. Aorta The aortic root is dilated at the level of the sinus of Valsalva measuring 4.2 cm in diameter. Left Ventricular Outflow Tract Name Value Normal LVOT 2D LVOT Diameter 2.2 cm LVOT Doppler LVOT Peak Velocity 93 cm/s LVOT Peak Gradient 3 mmHg LVOT Mean Gradient 2 mmHg LVOT VTI 18 cm LVOT VTI/AV VTI Ratio 0.7 LVOT Stroke Volume 66 ml LVOT CO 4.1 l/min LVOT CI 2.1 l/min/m2 Pulmonic Valve Name Value Normal RVOT Doppler RVOT Peak Velocity 70 cm/s RVOT Peak Gradient 2 mmHg PV Doppler PV Peak Velocity 103 cm/s PV Peak Gradient 4 mmHg Mitral Valve Name Value Normal MV Diastolic Function MV E Peak Velocity 64 cm/s MV A Peak Velocity 74 cm/s MV E/A 0.9 MV Decel Time (PW) 218 ms MV Annular TDI MV E/e' (Septal) 11.8 MV E/e' (Lateral) 8.8 MV E/e' (Average) 10.3 Tricuspid Valve Name Value Normal TV Regurgitation Doppler TR Peak Velocity 211 cm/s TR Peak Gradient 16 mmHg Estimated PAP/RSVP RA Pressure 3 mmHg <=5 PA Systolic Pressure 21 mmHg <36 RV Systolic Pressure 21 mmHg <36 TV Annular TDI TV Lateral Parris s' Velocity 10.2 cm/s >=9.5 Aorta Name Value Normal Ascending Aorta Ao Root Diameter (MM) 3.7 cm Ao Root Diam Index (MM) 1.9 cm/m2 Aortic Valve Name Value Normal AV Doppler AV Peak Velocity 123 cm/s AV Peak Gradient 6 mmHg AV Mean Gradient 3 mmHg AV VTI 26 cm AV Area (Cont Eq VTI) 2.5 cm2 >=3.0 AV Area (Cont Eq Tone) 2.7 cm2 AV DI (Tone) 0.76 AV Regurgitation 2D LVOT Area 3.6 cm2 Ventricles Name Value Normal LV Dimensions 2D/MM IVS Diastolic Thickness (2D) 1.0 cm 0.6-1.0 LVID Diastole (2D) 5.0 cm 4.2-5.8 LVIW Diastolic Thickness (2D) 0.9 cm 0.6-1.0 LVID Systole (2D) 3.5 cm 2.5-4.0 LVOT Diameter 2.2 cm LV Mass (2D Cubed) 166.11 g 88.00-224.00 LV Mass Index (2D Cubed) 85 g/m2 49-115 Relative Wall Thickness (2D) 0.37 <=0.42 LV Fractional Shortening/Ejection Fraction 2D/MM LV Fractional Shortening (2D) 30 % 25-43 LV EF (2D Teichholz) 57 % LV Diastolic Volume (4C MOD) 92 ml LV EF (4C MOD) 56 % LV Diastolic Volume (2C MOD) 79 ml LV EF (2C MOD) 54 % LV Diastolic Volume (BP MOD) 87 ml 62-150 LV Diastolic Volume Index (BP MOD) 44 ml/m2 34-74 LV Systolic Volume (BP MOD) 38 ml 21-61 LV Systolic Volume Index (BP MOD) 19 ml/m2 11-31 LV EF (BP MOD) 56 % 52-72 LV Diastolic Length (4C) 8.1 cm LV Systolic Length (4C) 6.7 cm LV Stroke Volume (4C MOD) 52 ml Atria Name Value Normal LA Dimensions LA Dimension (MM) 4.0 cm 3.0-4.0 LA Volume (4C A-L) 40 ml LA Volume (BP A-L) 48 ml RA Dimensions RA Area (4C) 16.0 cm2 <=18.0 EchoPAC Name Value Normal DAVID LV Apical Anterior Longitudinal Strain (DAVID) -17.0 % LV Apical Anteroseptal Longitudinal Strain (DAVID) -22.5 % LV Apical Inferior Longitudinal Strain (DAVID) -22.0 % LV Apical Lateral Longitudinal Strain (DAVID) -14.0 % LV Apical Posterior Longitudinal Strain (DAVID) -23.6 % LV Apical Septal Longitudinal Strain (DAVID) -20.4 % AV Closure (DAVID) 387 ms LV Basal Anterior Longitudinal Strain (DAVID) -16.4 % LV Basal Anteroseptal Longitudinal Strain (DAVID) -10.2 % LV Basal Inferior Longitudinal Strain (DAVID) -14.9 % LV Basal Anterolateral Longitudinal Strain (DAVID) -11.5 % LV Basal Inferolateral Longitudinal Strain (DAVID) -13.9 % LV Basal Inferoseptal Longitudinal Strain (DAVID) -12.2 % LV Global Longitudinal Strain (2C DAVID) -16.8 % LV Global Longitudinal Strain (4C DAVID) -14.1 % LV Global Longitudinal Strain (APLAX DAVID) -16.9 % LV Global Longitudinal Strain (DAVID) -15.9 % LV Mid Anterior Longitudinal Strain (DAVID) -14.4 % LV Mid Anteroseptal Longitudinal Strain (DAVID) -14.6 % LV Mid Inferior Longitudinal Strain (DAVID) -14.7 % LV Mid Anterolateral Longitudinal Strain (DAVID) -10.2 % LV Mid Inferolateral Longitudinal Strain (DAVID) -17.4 % LV Mid Inferoseptal Longitudinal Strain (DAVID) -16.8 % Report Signatures
== END 2025-02-09 07:30 | disposition home or self-care (01) ==
PROVIDERS: PCP Emergency Medicine; Visit Provider Emergency Medicine
DX: I71.010 Dissection of ascending aorta (principal); E78.00 Pure hypercholesterolemia, unspecified
CPT/HCPCS: 93306